=== PATIENT | male | born 1955 | race Hispanic/Latino ===

== ENCOUNTER 2021-07-11 19:16 | Emergency (ER) | payer OTHER, MEDICAID ==
[~2021-07-11] VITALS: Ht 167.6 cm; Wt 90.7 kg
[2021-07-11] MEDS ORDERED: ACETAMINOPHEN 325 MG TAB PO ONE (20:00)
[2021-07-11] MEDS ORDERED: BENZ-70 PO (20:27)
[2021-07-11] MEDS ORDERED: BENZONATATE 100 MG CAPSULE PO SCH (20:30)
[2021-07-11 21:02] VITALS: BP 132/74
== END 2021-07-11 21:03 | disposition home or self-care (01) ==
LOC: EDH 19:16
DX: U07.1 COVID-19 (principal)
CPT/HCPCS: 87635; 87804 ×2; 99283; C9803